=== PATIENT | male | born 1995 | race African-American/Black ===

== ENCOUNTER 2023-10-30 15:19 | Observation (INO) | payer OTHER ==
--- NOTE | 2023-10-30 16:02 | ED ---
General Adult HPI - General Source: patient, RN notes reviewed Mode of arrival: ambulatory Limitations: no limitations <Clemente Burns - Last Filed: 10/30/23 16:01> - General Source: patient, RN notes reviewed Mode of arrival: ambulatory Limitations: no limitations <Aylin Pedro - Last Filed: 10/30/23 23:23> - General Chief complaint: Skin/Abscess/Foreign Body Stated complaint: finger infection Time Seen by Provider: 10/30/23 15:39 - History of Present Illness Initial comments: Quick [id number] male presents emergency department with chief complaint infection to his left hand middle finger. He states that he was seen by urgent care took him 2 weeks worth of Augmentin states that they did initially poke his finger he states symptoms have not worsened. He states he now cannot bend his distal tip. (Clemente Burns) This is a 28-year-old male who presents to the emergency department for an infection to the left middle finger. States that it started 3 to 4 days ago and he is unsure how this happened. He initially went to urgent care and states that they did try to drain some fluid from the tip. They started him on Augmentin, which he has been taking, but states that the infection seems to be getting worse. This is also increasingly painful. Denies any fevers or chills. He is also having difficulty bending the tip of the finger. (Aylin Pedro) - Related Data Home Medications Medication Instructions Recorded Confirmed Amoxic-Pot Clav 875-125Mg 1 tab PO BID 10/30/23 10/30/23 [Augmentin 875-125] Allergies Allergy/AdvReac Type Severity Reaction Status Date / Time peanut [Peanut Butter] Allergy Anaphylaxis Verified 10/30/23 18:36 Review of Systems ROS Other: All systems not noted in ROS Statement are negative. <Clemente Burns - Last Filed: 10/30/23 16:01> ROS Other: All systems not noted in ROS Statement are negative. <Aylin Pedro - Last Filed: 10/30/23 23:23> ROS Statement: Those systems with pertinent positive or pertinent negative responses have been documented in the HPI. Past Medical History Additional Past Medical History / Comment(s): childhood asthma Additional Past Surgical History / Comment(s): left rotator cuff repair (2009) Past Psychological History: No Psychological Hx Reported Smoking Status: Never smoker Past Alcohol Use History: None Reported Past Drug Use History: None Reported <Clemente Burns - Last Filed: 10/30/23 16:01> General Exam Limitations: no limitations <Clemente Burns - Last Filed: 10/30/23 16:01> Limitations: no limitations General appearance: alert, in no apparent distress Head exam: Present: atraumatic, normocephalic, normal inspection Respiratory exam: Present: normal lung sounds bilaterally. Absent: respiratory distress, wheezes, rales, rhonchi, stridor Cardiovascular Exam: Present: regular rate, normal rhythm, normal heart sounds. Absent: systolic murmur, diastolic murmur, rubs, gallop, clicks Extremities exam: Present: other (Significant swelling, erythema, and tenderness to the left middle finger with purulent material towards the tip. Decreased range of motion.) Neurological exam: Present: alert, oriented X3, CN II-XII intact Psychiatric exam: Present: normal affect, normal mood <Aylin Pedro - Last Filed: 10/30/23 23:23> - General Exam Comments Initial Comments: Visual Physical Exam Vital signs reviewed General: Well-appearing, nontoxic, no acute distress. Head: Normocephalic, atraumatic Eyes: PERRLA, EOMI ENT: Airway patent Chest: Nonlabored breathing Skin: No visual rash, normal skin tone Neuro: Alert and oriented 3 Musculoskeletal: No gross abnormalities (Clemente Burns) Course Vital Signs 10/30/23 10/30/23 10/30/23 15:57 18:31 20:28 Temperature 98.8 F 97.9 F Pulse Rate 66 Pulse Rate [ Pulse Oximetery ] Respiratory 16 16 16 Rate Blood Pressure 109/74 146/84 Blood Pressure 142/85 [Right Arm] O2 Sat by Pulse 100 100 Oximetry 10/30/23 21:11 Temperature 98.7 F Pulse Rate Pulse Rate [ 78 Pulse Oximetery ] Respiratory 15 Rate Blood Pressure Blood Pressure 150/80 [Right Arm] O2 Sat by Pulse 100 Oximetry Medical Decision Making <Clemente Burns - Last Filed: 10/30/23 16:01> - Lab Data Result diagrams: 10/30/23 16:30 10/30/23 16:30 - Radiology Data Radiology results: report reviewed, image reviewed <Aylin Pedro - Last Filed: 10/30/23 23:23> - Medical Decision Making I completed the quick note portion of this chart signed Clemente Burns PA-C (Clemente Burns) This is a 28-year-old male who presents to the emergency department for an infection to the left middle finger. Was pt. sent in by a medical professional or institution? @ -No Did you speak to anyone other than the patient for history? @ -No Did you review nursing and triage notes? @ -Yes, and I agree, it is accurate with regards to the patient's symptoms. Were old charts reviewed? @ -No Differential Diagnosis? @ -Differential Musculoskeletal: Muscular strain, contusion, ligament sprain, fracture, arthritis, septic arthritis, bursitis, cellulitis, muscle spasm, nerve compression, DVT, arterial occlusion, herpes zoster, electrolyte abnormality, tumor.... This is not meant to be in all inclusive list EKG interpreted by me (3pts min.)? @ -Not obtained X-rays interpreted by me (1pt min.)? @ -X-ray of the left middle finger obtained. My interpretation identifies soft tissue swelling. CT interpreted by me (1pt min.)? @ -Not obtained U/S interpreted by me (1pt. min.)? @ -Not obtained What testing was considered but not performed? (CT, X-rays, U/S, labs)? Why? @ -None What meds were considered but not given? Why? @ -None Did you discuss the management of the patient with other professionals? @ -Yes, Dr. Cobb, who accepts the patient for admission. Did you reconcile home meds? @ -No Was smoking cessation discussed for >3mins.? @ -No Was critical care preformed (if so, how long)? @ -No Were there social determinants of health that impacted care today? How? (Homelessness, low income, unemployed, alcoholism, drug addiction, transportation, low edu. Level, literacy, decrease access to med. care, long term, rehab)? @ -No Was there de-escalation of care discussed even if they declined? (Discuss DNR or withdrawal of care, Hospice)? @ -No What co-morbidities impacted this encounter? (DM, HTN, Smoking, COPD, CAD, Cancer, CVA, Hep., AIDS, mental health diagnosis, sleep apnea, morbid obesity)? @ -None Was patient admitted / discharged? @ -Admitted. Lab work demonstrates leukocytosis with a white blood cell count of 15. X-ray of the left middle finger demonstrates soft tissue swelling without acute osseous abnormality. Patient had diffuse swelling and erythema of the entire digit. This appears to potentially started as a felon of the finger. He was unable to bend the finger at the DIP joint. There is concern for the patient starting to develop infectious tenosynovitis. Patient admitted to medicine for failed outpatient management and possible infectious tenosynovitis. Aerobic and anaerobic wound cultures ordered. Patient started on vancomycin and cefepime. Consult placed for orthopedics and infectious disease. Case discussed with ED attending Dr. Montero. Undiagnosed new problem with uncertain prognosis? @ -None Drug Therapy requiring intensive monitoring for toxicity (Heparin, Nitro, Insulin, Cardizem)? @ -None Were any procedures done? @ -None Diagnosis/symptom? @ -Infectious tenosynovitis Acute, or Chronic, or Acute on Chronic? @ -Acute Uncomplicated (without systemic symptoms) or Complicated (systemic symptoms)? @ -Uncomplicated Side effects of treatment? @ -None Exacerbation, Progression, or Severe Exacerbation] @ -Not applicable Poses a threat to life or bodily function? @ -Yes, this is limiting his use of the left hand. (Aylin Pedro) - Lab Data Lab Results 10/30/23 10/30/23 10/30/23 Range/Units 16:30 16:30 16:30 WBC 15.0 H (3.8-10.6) k/uL RBC 4.67 (4.30-5.90) m/uL Hgb 14.6 (13.0-17.5) gm/dL Hct 43.3 (39.0-53.0) % MCV 92.7 (80.0-100.0) fL MCH 31.4 (25.0-35.0) pg MCHC 33.9 (31.0-37.0) g/dL RDW 11.6 (11.5-15.5) % Plt Count 310 (150-450) k/uL MPV 7.1 Neutrophils % 80 % Lymphocytes % 14 % Monocytes % 3 % Eosinophils % 2 % Basophils % 0 % Neutrophils # 11.9 H (1.3-7.7) k/uL Lymphocytes # 2.1 (1.0-4.8) k/uL Monocytes # 0.5 (0-1.0) k/uL Eosinophils # 0.3 (0-0.7) k/uL Basophils # 0.0 (0-0.2) k/uL Sodium 134 L (137-145) mmol/L Potassium 3.9 (3.5-5.1) mmol/L Chloride 101 (98-107) mmol/L Carbon Dioxide 23 (22-30) mmol/L Anion Gap 10 mmol/L BUN 19 (9-20) mg/dL Creatinine 1.05 (0.66-1.25) mg/dL Est GFR (CKD-EPI)AfAm >90 (>60 ml/min/1.73 sqM) Est GFR (CKD-EPI)NonAf >90 (>60 ml/min/1.73 sqM) Glucose 95 (74-99) mg/dL Plasma Lactic Acid Smith 0.8 (0.7-2.0) mmol/L Calcium 9.7 (8.4-10.2) mg/dL Total Bilirubin 0.4 (0.2-1.3) mg/dL AST 37 (17-59) U/L ALT 34 (4-49) U/L Alkaline Phosphatase 118 (38-126) U/L C-Reactive Protein 0.9 (<1.0) mg/dL Total Protein 7.0 (6.3-8.2) g/dL Albumin 4.2 (3.5-5.0) g/dL Disposition <Clemente Burns - Last Filed: 10/30/23 16:01> <Aylin Pedro - Last Filed: 10/30/23 23:23> Clinical Impression: Infectious tenosynovitis Disposition: ADMITTED IP TO THIS HOSP
[2023-10-30] MEDS: SODIUM CHLORIDE 0.9% 1,000 ML IV STA (16:38)
[2023-10-30 16:54] LABS: Basophils % (A) 0 %; Eosinophils # (A) 0.3 k/uL (0-0.7); Eosinophils % (A) 2 %; HCT 43.3 % (39.0-53.0); HGB 14.6 gm/dL (13.0-17.5); Lymphocytes # (A) 2.1 k/uL (1.0-4.8); Lymphocytes % (A) 14 %; MCH 31.4 pg (25.0-35.0); MCHC 33.9 g/dL (31.0-37.0); MCV 92.7 fL (80.0-100.0); Mean Platelet Volume 7.1; Monocytes # (A) 0.5 k/uL (0-1.0); Monocytes % (A) 3 %; Neutrophils # (A) 11.9 k/uL (1.3-7.7); Neutrophils % (A) 80 %; Platelet Count 310 k/uL (150-450); RBC 4.67 m/uL (4.30-5.90); RDW 11.6 % (11.5-15.5)
[2023-10-30] MEDS: KETOROLAC 15 MG/ML 1 ML VIAL IVP STA (16:55)
[2023-10-30 17:10] LABS: ALT 34 U/L (4-49); AST 37 U/L (17-59); African American GFR (CKD) >90 (>60 ml/min/1.73 sqM); Albumin 4.2 g/dL (3.5-5.0); Alkaline Phosphatase 118 U/L (38-126); Anion Gap 10 mmol/L; Blood Urea Nitrogen 19 mg/dL (9-20); C Reactive Protein 0.9 mg/dL (<1.0); Calcium 9.7 mg/dL (8.4-10.2); Carbon Dioxide 23 mmol/L (22-30); Chloride 101 mmol/L (98-107); Glucose 95 mg/dL (74-99); Non-African American GFR(CKD) >90 (>60 ml/min/1.73 sqM); Potassium 3.9 mmol/L (3.5-5.1); Sodium 134 mmol/L (137-145); Total Bilirubin 0.4 mg/dL (0.2-1.3)
--- NOTE | 2023-10-30 17:26 | XR ---
EXAMINATION TYPE: XR finger LT, 3 views coned down third finger DATE OF EXAM: 10/30/2023 Comparison: None Clinical History: 28-year-old male with pain and infection Findings: There is generalized soft tissue swelling particularly of the middle and distal aspect of the third f aneta. No underlying periostitis or osteolysis. No retained radiopaque foreign body seen. No acute fr acture, subluxation, dislocation. Impression: Soft tissue swelling of the third finger without underlying acute osseous abnormality seen. No retain ed radiopaque foreign body seen.
[2023-10-30] MEDS ORDERED: VANCOMYCIN IV PER PHARMACY 1 EACH MISC MISCELLANE PRN (17:46)
[2023-10-30] MEDS ORDERED: HYDROcodone/APAP 5-325MG 1 EACH TAB PO PRN (17:50)
[2023-10-30] MEDS ORDERED: NALOXONE 0.4 MG/ML 1 ML VIAL IV PRN (17:50)
[2023-10-30] MEDS ORDERED: IBUPROFEN 400 MG TAB PO PRN (17:50)
[2023-10-30] MEDS ORDERED: ONDANSETRON 4 MG/2 ML VIAL IVP PRN (17:50)
[2023-10-30] MEDS: CEFEPIME 1 GM in SODIUM CHLORIDE 0.9% 50 ML IVPB SCH (18:09)
[2023-10-30] MEDS: MORPHINE SULFATE 4 MG/ML SYRINGE IV PRN (18:29)
[2023-10-30] MEDS: VANCOMYCIN 1,500 MG in SODIUM CHLORIDE 0.9% 500 ML 500 ML IVPB SCH (18:51)
[2023-10-30] MEDS: KETOROLAC 15 MG/ML 1 ML VIAL IVP PRN (22:20)
[2023-10-30] MEDS: ACETAMINOPHEN TAB 325 MG TAB PO PRN (22:22)
[2023-10-31 09:34] LABS: Basophils # (A) 0.02 X 10*3/uL (0.00-0.10); Basophils % (A) 0.2 %; Eosinophils # (A) 0.16 X 10*3/uL (0.04-0.35); Eosinophils % (A) 1.5 %; HCT 41.7 % (39.6-50.0); HGB 14.2 g/dL (13.0-17.0); Lymphocytes # (A) 2.33 X 10*3/uL (0.90-5.00); Lymphocytes % (A) 21.6 %; MCH 31.7 pg (27.0-32.0); MCHC 34.1 g/dL (32.0-37.0); MCV 93.1 FL (80.0-97.0); Mean Platelet Volume 10.4 FL (9.5-12.2); Monocytes # (A) 0.59 X 10*3/uL (0.20-1.00); Monocytes % (A) 5.5 %; NRBC Per 100 WBC 0 X 10*3/uL (0.00-0.01); Neutrophils # (A) 7.65 X 10*3/uL (1.80-7.70); Neutrophils % (A) 70.7 %; Platelet Count 292 X 10*3/uL (140-440); RBC 4.48 X 10*6/uL (4.40-5.60); RDW 11.7 % (11.5-14.5)
[2023-10-31 09:42] LABS: BUN/Creat Ratio 11.64 Ratio (12.00-20.00); Blood Urea Nitrogen 12.8 mg/dL (9.0-27.0); Calcium 9.4 mg/dL (8.7-10.3); Carbon Dioxide 23.4 mmol/L (21.6-31.8); Chloride 104 mmol/L (96-109); Glucose 87 mg/dL (70-110); Potassium 4.4 mmol/L (3.5-5.5); Sodium 137 mmol/L (135-145)
--- NOTE | 2023-10-31 11:42 | P.CNOR ---
History of Present Illness - [facility] Consult date: 10/31/23 Consult reason: other (Left middle finger infection) History of present illness: The patient is a 28-year-old male with no previous medical history who presented to the emergency department with worsening infection to his left middle finger. He states that he may have injured his finger while at the gym and noticed increased pain and swelling in the finger about 4 to 5 days ago. He went to urgent care and they did poke his finger at the end to drain fluid and placed him on oral antibiotics. The finger continued to worsen and he presented to the emergency department for further evaluation. He was started on IV antibiotics and admitted to the hospital. Orthopedics was on consult for further evaluation of the left middle finger. The patient denies any fever or chills. Review of Systems Constitutional: Denies chills, Denies fatigue, Denies fever Cardiovascular: Denies chest pain, Denies shortness of breath Respiratory: Denies cough Gastrointestinal: Denies diarrhea, Denies nausea, Denies vomiting Musculoskeletal: left: hand pain, hand stiffness, hand swelling Past Medical History Additional Past Medical History / Comment(s): childhood asthma History of Any Multi-Drug Resistant Organisms: None Reported Additional Past Surgical History / Comment(s): left rotator cuff repair (2009) Past Psychological History: No Psychological Hx Reported Smoking Status: Never smoker Past Alcohol Use History: None Reported Past Drug Use History: None Reported Medications and Allergies Home Medications Medication Instructions Recorded Confirmed Type Amoxic-Pot Clav 875-125Mg 1 tab PO BID 10/30/23 10/30/23 History [Augmentin 875-125] Allergies Allergy/AdvReac Type Severity Reaction Status Date / Time peanut [Peanut Butter] Allergy Anaphylaxis Verified 10/30/23 18:36 Physical Examination The patient is a 28-year-old male in no acute distress. He is alert and oriented x 3. Exam of the left middle finger reveals swelling to the distal and middle phalanx levels. There is a small poke hole to the tip of the finger which is not draining and there are 2 small slits in the skin on the radial side of the finger tip that are draining a serosanguineous drainage with some purulence. There is no pain along the flexor tendon and he is able to move his PIP joint with mild pain. There is no pain into the palm or within the carpal tunnel area. There is no proximal red streaking. Neurological and circulatory status is intact. Results X-rays of the left middle finger reveal no acute fractures or osteomyelitis suspected. - Labs Labs: Abnormal Lab Results - Last 24 Hours (Table) 10/30/23 10/30/23 10/30/23 Range/Units 16:30 16:30 18:06 WBC 15.0 H (3.8-10.6) k/uL Immature Gran # (0.00-0.04) X 10*3/uL Neutrophils # 11.9 H (1.3-7.7) k/uL ESR 28 H (0-15) mm/Hr Sodium 134 L (137-145) mmol/L BUN/Creatinine Ratio (12.00-20.00) Ratio 10/31/23 10/31/23 Range/Units 03:39 03:42 WBC 10.80 H (3.8-10.6) k/uL Immature Gran # 0.05 H (0.00-0.04) X 10*3/uL Neutrophils # (1.3-7.7) k/uL ESR (0-15) mm/Hr Sodium (137-145) mmol/L BUN/Creatinine Ratio 11.64 L (12.00-20.00) Ratio H & H 10/30/23 10/31/23 Range/Units 16:30 03:42 Hgb 14.6 14.2 (13.0-17.5) gm/dL Hct 43.3 41.7 (39.0-53.0) % Result Diagrams: 10/31/23 03:42 10/31/23 03:39 Assessment and Plan (1) Felon of finger of left hand Current Visit: Yes Status: Acute Code(s): L03.012 - CELLULITIS OF LEFT FINGER SNOMED Code(s): 21289797549125772 (2) Finger pain, left Current Visit: Yes Status: Acute Code(s): M79.645 - PAIN IN LEFT FINGER(S) SNOMED Code(s): 13418721 Plan: The clinical and x-ray findings were discussed with the patient. The case was discussed with Dr. Candelaira. The infection appears to have started as a felon and does not appear to have extended into the flexor tendon sheath. The patient will benefit with IV antibiotics and warm compresses. The finger is draining on its own does not appear to need a deeper debridement at this time. We will continue to follow the patient closely and make further recommendations.
--- NOTE | 2023-10-31 16:01 | P.HPIM ---
History of Present Illness H&P Date: 10/30/23 Chief Complaint: Left middle finger infection 28-year-old male, history of asthma as a child, presented to the emergency department with worsening infection to his left middle finger. He states that he may have injured his finger while at the gym and noticed increased pain and swelling in the finger about 4 to 5 days ago. He went to urgent care and they did poke his finger at the end to drain fluid and placed him on oral antibiotics. The finger continued to worsen and he presented to the emergency department for further evaluation. He was started on IV antibiotics and admitted to the hospital. Orthopedics was on consult for further evaluation of the left middle finger. The patient denies any fever or chills. Lab work completed in ED reveals a WBC of 10.8, hemoglobin of 14.1. Count of 292, sodium 137, potassium 4.4, BUNs/creatinine of 12.8/1.1 X-ray of the finger reveals soft tissue swelling of the third finger without underlying acute osseous abnormality. No retained radiopaque foreign body Aerobic and anaerobic wound cultures were obtained in ED and patient is placed on IV vancomycin and cefepime; plan to consult ID and orthopedic surgery Review of Systems REVIEW OF SYSTEMS: CONSTITUTIONAL: No fever, no malaise, no fatigue. HEENT: No recent visual problems or hearing problems. Denied any sore throat. CARDIOVASCULAR: No chest pain, orthopnea, PND, no palpitations, no syncope. PULMONARY: No shortness of breath, no cough, no hemoptysis. GASTROINTESTINAL: No diarrhea, no nausea, no vomiting, no abdominal pain. NEUROLOGICAL: No headaches, no weakness, no numbness. HEMATOLOGICAL: Denies any bleeding or petechiae. GENITOURINARY: Denies any burning micturition, frequency, or urgency. MUSCULOSKELETAL/RHEUMATOLOGICAL: Denies any joint pain, swelling, or any muscle pain. ENDOCRINE: Denies any polyuria or polydipsia. The rest of the 14-point review of systems is negative. Past Medical History Additional Past Medical History / Comment(s): childhood asthma Additional Past Surgical History / Comment(s): left rotator cuff repair (2009) Past Psychological History: No Psychological Hx Reported Smoking Status: Never smoker Past Alcohol Use History: None Reported Past Drug Use History: None Reported Medications and Allergies Home Medications Medication Instructions Recorded Confirmed Type Amoxic-Pot Clav 875-125Mg 1 tab PO BID 10/30/23 10/30/23 History [Augmentin 875-125] Allergies Allergy/AdvReac Type Severity Reaction Status Date / Time peanut [Peanut Butter] Allergy Anaphylaxis Verified 10/30/23 18:36 Physical Exam Vitals: Vital Signs Temp Pulse Resp BP Pulse Ox 10/30/23 15:57 98.8 F 66 16 109/74 100 Intake and Output 10/30/23 10/30/23 10/30/23 06:59 14:59 22:59 Other: Weight 81.647 kg General appearance: alert, in no apparent distress Head exam: Present: atraumatic, normocephalic, normal inspection Respiratory exam: Present: normal lung sounds bilaterally. Absent: respiratory distress, wheezes, rales, rhonchi, stridor Cardiovascular Exam: Present: regular rate, normal rhythm, normal heart sounds. Absent: systolic murmur, diastolic murmur, rubs, gallop, clicks Extremities exam: Present: other (Significant swelling, erythema, and tenderness to the left middle finger with purulent material towards the tip. Decreased range of motion.) Neurological exam: Present: alert, oriented X3, CN II-XII intact Psychiatric exam: Present: normal affect, normal mood Results CBC & Chem 7: 10/31/23 03:42 10/31/23 03:39 Labs: Abnormal Lab Results - Last 24 Hours (Table) 10/30/23 10/30/23 Range/Units 16:30 16:30 WBC 15.0 H (3.8-10.6) k/uL Neutrophils # 11.9 H (1.3-7.7) k/uL Sodium 134 L (137-145) mmol/L Assessment and Plan Assessment: 1. Infectious tenosynovitis left middle finger -White blood count is elevated at 15.9 with x-ray of the left middle finger d emonstrating soft tissue swelling without acute osseous abnormality -Patient has been placed on IV vancomycin and cefepime; IV morphine and Toradol for pain control; patient has been placed on IV fluids in form of normal saline at rate of 100 cc an hour -Consult ID and orthopedic surgery 2. Leukocytosis; likely related to left middle finger infection -Patient is placed on IV antibiotics; we will monitor CBC, CRP and procalcitonin 3. Mild hyponatremia; patient has received 1 L of IV fluids in form of normal saline; will monitor electrolytes 4. History of left rotator cuff injury/repair; stable DVT prophylaxis; early ambulation CODE STATUS; full code
--- NOTE | 2023-10-31 16:02 | P.PN ---
Subjective Progress Note Date: 10/31/23 28-year-old male, history of asthma as a child, presented to the emergency department with worsening infection to his left middle finger. He states that he may have injured his finger while at the gym and noticed increased pain and swelling in the finger about 4 to 5 days ago. He went to urgent care and they did poke his finger at the end to drain fluid and placed him on oral antibiotics. The finger continued to worsen and he presented to the emergency department for further evaluation. He was started on IV antibiotics and admitted to the hospital. Orthopedics was on consult for further evaluation of the left middle finger. The patient denies any fever or chills. Lab work completed in ED reveals a WBC of 10.8, hemoglobin of 14.1. Count of 292, sodium 137, potassium 4.4, BUNs/creatinine of 12.8/1.1 X-ray of the finger reveals soft tissue swelling of the third finger without underlying acute osseous abnormality. No retained radiopaque foreign body Aerobic and anaerobic wound cultures were obtained in ED and patient is placed on IV vancomycin and cefepime; plan to consult ID and orthopedic surgery Objective - Vital Signs Vital signs: Vital Signs Temp 98.0 F 10/31/23 13:46 Pulse 74 10/31/23 13:46 Resp 16 10/31/23 13:46 BP 127/66 10/31/23 13:46 Pulse Ox 98 10/31/23 13:46 FiO2 Intake & Output 10/30/23 10/31/23 10/31/23 18:59 06:59 18:59 Weight 81.647 kg 81.647 kg Other: # Voids 1 - Exam General appearance: alert, in no apparent distress Head exam: Present: atraumatic, normocephalic, normal inspection Respiratory exam: Present: normal lung sounds bilaterally. Absent: respiratory distress, wheezes, rales, rhonchi, stridor Cardiovascular Exam: Present: regular rate, normal rhythm, normal heart sounds. Absent: systolic murmur, diastolic murmur, rubs, gallop, clicks Extremities exam: Present: other (Significant swelling, erythema, and tenderness to the left middle finger with purulent material towards the tip. Decreased range of motion.) Neurological exam: Present: alert, oriented X3, CN II-XII intact Psychiatric exam: Present: normal affect, normal mood - Labs CBC & Chem 7: 10/31/23 03:42 10/31/23 03:39 Labs: Abnormal Lab Results - Last 24 Hours (Table) 10/30/23 10/30/23 10/30/23 Range/Units 16:30 16:30 18:06 WBC 15.0 H (3.8-10.6) k/uL Immature Gran # (0.00-0.04) X 10*3/uL Neutrophils # 11.9 H (1.3-7.7) k/uL ESR 28 H (0-15) mm/Hr Sodium 134 L (137-145) mmol/L BUN/Creatinine Ratio (12.00-20.00) Ratio 10/31/23 10/31/23 Range/Units 03:39 03:42 WBC 10.80 H (3.8-10.6) k/uL Immature Gran # 0.05 H (0.00-0.04) X 10*3/uL Neutrophils # (1.3-7.7) k/uL ESR (0-15) mm/Hr Sodium (137-145) mmol/L BUN/Creatinine Ratio 11.64 L (12.00-20.00) Ratio Assessment and Plan Assessment: 1. Infectious tenosynovitis left middle finger -White blood count is elevated at 15.9 with x-ray of the left middle finger demonstrating soft tissue swelling without acute osseous abnormality -Patient has been placed on IV vancomycin and cefepime; IV morphine and Toradol for pain control; patient has been placed on IV fluids in form of normal saline at rate of 100 cc an hour -Consult ID and orthopedic surgery 2. Leukocytosis; likely related to left middle finger infection -Patient is placed on IV antibiotics; we will monitor CBC, CRP and procalcitonin 3. Mild hyponatremia; patient has received 1 L of IV fluids in form of normal saline; will monitor electrolytes 4. History of left rotator cuff injury/repair; stable DVT prophylaxis; early ambulation CODE STATUS; full code
[2023-10-31] MEDS: CEFEPIME 2 GM in SODIUM CHLORIDE 0.9% 100 ML IVPB SCH (16:21)
[2023-11-01] MEDS ORDERED: VANCOMYCIN TROUGH DUE 1 EACH MISC MISCELLANE ONE (06:00)
[2023-11-01 07:28] VITALS: BP 121/72; PULSE 70; RESP 13; TEMP 98.1
[2023-11-01] MEDS ORDERED: KETOROLAC 15 MG/ML 1 ML VIAL ONE ×3 (08:34→21:45)
[2023-11-01] MEDS ORDERED: SODIUM CHLORIDE 0.9% 50 ML BAG ONE (23:59)
[2023-11-01] MEDS ORDERED: VANCOMYCIN 500 MG VIAL ONE (23:59)
[2023-11-01] MEDS ORDERED: VANCOMYCIN 1,000 MG VIAL ONE (23:59)
[2023-11-01] MEDS ORDERED: SODIUM CHLORIDE 0.9% 500 ML BAG ONE (23:59)
[2023-11-01] MEDS ORDERED: CEFEPIME 2 GM VIAL IVPB ONE (23:59)
[2023-11-02] MEDS ORDERED: IBUPROFEN 400 MG TAB ONE ×2 (14:04→21:46)
[2023-11-02] MEDS ORDERED: VANCOMYCIN 1,000 MG VIAL ONE (23:59)
[2023-11-02] MEDS ORDERED: VANCOMYCIN 500 MG VIAL ONE (23:59)
[2023-11-02] MEDS ORDERED: SODIUM CHLORIDE 0.9% 500 ML BAG ONE (23:59)
[2023-11-02] MEDS ORDERED: SODIUM CHLORIDE 0.9% 50 ML BAG ONE (23:59)
[2023-11-02] MEDS ORDERED: CEFEPIME 2 GM VIAL IVPB ONE (23:59)
== END 2023-11-03 15:50 | disposition home or self-care (01) ==
LOC: EC 15:19 → 6NMEDSUR 18:39
PROVIDERS: ADMIT Internal Medicine; ATTEND Internal Medicine
DX: L03.012 Cellulitis of left finger (principal); M65.142 Other infective (teno)synovitis, left hand; E87.1 Hypo-osmolality and hyponatremia
CPT/HCPCS: 36415; 80053; 80048; 85652; 83605; 85025 ×2; 86140; 87070; 87205; 87075; 73140; J3370 ×2; J2270; J0692 ×2; J1885 ×2; 80202; 87077; 87186; 96365; 96366; 96367; 96375; 96376; 99284